=== PATIENT | male | born 1975 | race Caucasian/White ===

== ENCOUNTER 2024-08-25 13:59 | Outpatient (CLI) | payer OTHER, SELFPAY ==
--- NOTE | ~2024-08-25 | MR_ITS ---
EXAMINATION: MR shoulder LT wo con DATE: 08/25/2024 14:37 INDICATION: Acute onset left shoulder pain TECHNIQUE: Magnetic resonance imaging (MRI) of the left shoulder was performed without intravenous co ntrast. Sequences included axial PD-weighted FS FSE, coronal oblique PD-weighted FS FSE, coronal obli que T2-weighted FS FSE, sagittal PD-weighted FS FSE, and sagittal T1-weighted SE. COMPARISON: None. FINDINGS: Coracoacromial arch: The acromion undersurface is curved in morphology (type II). The coracoacromial ligament is normal. A cromioclavicular joint is normal. Rotator cuff: Tendinopathy without discrete tear at the conjoined portion of the supraspinatus and infraspinatus te ndons. There is also mild tendinopathy without tear at the cephalad aspect of the subscapularis tendo n. The teres minor tendon is normal. There is minimal increased fluid signal in the infraspinatus mus elena belly. Normal signal in the remaining rotator cuff musculature. No atrophy. Biceps tendon, glenoid labrum and glenohumeral cartilage: Long head of the biceps tendon is normal. Glenoid labrum is normal. Glenohumeral cartilage is normal. Fluid: Physiologic amount of fluid in the glenohumeral joint and biceps tendon sheath. No loose osteochondr al bodies. Small amount of fluid in the subacromial/subdeltoid bursa consistent with mild bursitis. Bones: Normal marrow signal with no edema, fracture or abnormal marrow replacing process. Mild cystic change at the greater tuberosity. There is mild dilation of the veins distal to the spinal glenoid notch wi thout evident ganglion cyst rather obstructing lesion at the notch. IMPRESSION: 1. Mild tendinopathy without tear at the conjoined portion of the supraspinatus and infraspinatus ten dons. 2. Mild increased signal of the infraspinatus muscle belly which can be related to neuropathy resulti ng from infraspinatus nerve impingement potentially related to the enlarged veins converging at the n otch. 3. Mild subacromial/subdeltoid bursitis. Reviewed, dictated and finalized at location B. IMPRESSION: 1. Mild tendinopathy without tear at the conjoined portion of the supraspinatus and infraspinatus tendons. 2. Mild increased signal of the infraspinatus muscle belly which can be related to neuropathy resulting from infraspinatus nerve impingement potentially relat ed to the enlarged veins converging at the notch. 3. Mild subacromial/subdeltoid bursitis.
== END 2024-08-25 14:00 | disposition home or self-care (01) ==
LOC: MICIMG 14:03
PROVIDERS: PCP Registered Nurse; Visit Provider Physician Assistant
DX: M75.92 Shoulder lesion, unspecified, left shoulder (principal); M75.52 Bursitis of left shoulder
CPT/HCPCS: 73221